=== PATIENT | male | born 1975 | race Asian ===

== ENCOUNTER → 2022-04-17 | Outpatient (CLI) | payer OTHER ==
[~2022-04-17] MED LIST: ALLOPURINOL100 MG PO; LOSARTAN POTAS100 MG PO
== END ==
LOC: RAD 08:00 → EDSTATUS 10:00
PROVIDERS: ATTEND Internal Medicine Gastroenterology
DX: Z01.810 Encounter for preprocedural cardiovascular examination (principal); R11.0 Nausea; R10.9 Unspecified abdominal pain
CPT/HCPCS: 93005